=== PATIENT | female | born 1960 | race Caucasian/White ===

== ENCOUNTER → 2016-12-12 | Outpatient (CLI) | payer OTHER ==
[~2016-12-12] VITALS: Ht 162.6 cm; Wt 87.5 kg
[~2016-12-12] MED LIST: ANTIVERT25 MG PO; CLONAZEPAM1 MG PO; COMPAZINE10 MG PO; FIORICET 50-301 EACH PO; GUMMI BEAR MUL1 EACH PO; OXAYDO5 MG PO; PROTONIX40 MG PO; PROZAC40 MG PO; SOTALOL80 MG PO; SYNTHROID25 MCG PO; TIROSINT50 MCG PO; TIROSINT88 MCG PO; TOPAMAX50 MG PO; VITAMIN B125000 MCG PO; VITAMIN D32000 UNI1 PO
[2016-12-12 09:45] VITALS: BP 134/62
== END | disposition home or self-care (01) ==
LOC: IVINF 09:30
PROVIDERS: Internal Medicine Endocrinology, Diabetes & Metabolism
DX: R53.83 Other fatigue (principal); R53.81 Other malaise
CPT/HCPCS: 80400; 82024 90; 82533 91; 96374; J0834

== ENCOUNTER → 2016-12-13 | Outpatient (CLI) | payer OTHER | END | disposition home or self-care (01) | LOC: NUC 08:43 | DX: R68.81 Early satiety (principal) | CPT/HCPCS: 78264; A9541 ==

== ENCOUNTER → 2017-07-31 | Outpatient (CLI) | payer OTHER | END | disposition home or self-care (01) | LOC: NUC 08:25 | DX: R11.14 Bilious vomiting (principal); R14.0 Abdominal distension (gaseous) | CPT/HCPCS: 78804; 78999; A9572 ==

== ENCOUNTER 2017-10-22 15:01 | Emergency (ER) | payer OTHER ==
[~2017-10-22] VITALS: Ht 162.6 cm; Wt 94.8 kg
[2017-10-22 16:38] LABS: HEMATOCRIT 40.2 % (36.0-46.0); MCH 25.1 PG (29.0-34.0); MCHC 30.6 G/DL (30.0-36.0); MEAN PLAT.VOLUME 9.7 uM^3 (9.5-12.4); PLATELET COUNT 492 K/uL (156-360); RBC DIS.WIDTH-CV 14.2 % (11.8-14.6); RBC DIS.WIDTH-SD 42.5 % (39-53); WHITE BLOOD COUNT 14.4 K/uL (4.1-10.2)
[2017-10-22 16:47] LABS: CHLORIDE 104 mEq/L (99-109); POTASSIUM 2.7 mEq/L (3.7-5.4); SODIUM 141 mEq/L (136-147)
[2017-10-22 16:48] LABS: GLUCOSE 85 mg/dL (70-99)
[2017-10-22 16:50] LABS: ANION GAP 13 MEQ/L (2-14)
[2017-10-22 16:52] LABS: GFR ESTIMATE (CALCULATED) > 59 mL/min/
[2017-10-22 16:53] LABS: UREA NITROGEN (BUN) 13 mg/dL (9-23)
[2017-10-22] MEDS ORDERED: PHENERGAN-CODE120 ML PO (18:56)
[2017-10-22 19:06] VITALS: BP 164/95
== END 2017-10-22 19:07 | disposition home or self-care (01) ==
LOC: EME 15:01
DX: R05 Cough (principal); E87.6 Hypokalemia; E03.9 Hypothyroidism, unspecified; Z85.3 Personal history of malignant neoplasm of breast; Z90.13 Acquired absence of bilateral breasts and nipples; Z87.19 Personal history of other diseases of the digestive system; Z88.5 Allergy status to narcotic agent; Z88.8 Allergy status to other drugs, medicaments and biological substances
CPT/HCPCS: 71020; 71250; 80048; 85027; 87070; 87205; 93005; 94640; 99281; 99285

== ENCOUNTER 2018-01-18 13:47 | Emergency (ER) | payer OTHER ==
[~2018-01-18] VITALS: Ht 160 cm; Wt 97.5 kg
[~2018-01-18 13:47] MED LIST changes: +PHENERGAN-CODE120 ML PO
[2018-01-18 15:22] LABS: BASOPHIL (%) 1.2 % (0-1); BASOPHIL COUNT 0.1 K/uL (0-0.1); EOSINOPHIL (%) 2.7 % (0-5); EOSINOPHIL COUNT 0.2 K/uL (0-0.3); HEMATOCRIT 32.4 % (36.0-46.0); IMMATURE GRANULOCYTE (%) 0.3 % (0.0-0.7); LYMPHOCYTE (%) 30.2 % (15-42); MCH 24.3 PG (29.0-34.0); MCHC 31.5 G/DL (30.0-36.0); MONOCYTE (%) 8.9 % (3-12); MONOCYTE COUNT 0.6 K/uL (0-0.8); NEUTROPHIL (%) 56.7 % (45-76); NEUTROPHIL COUNT 3.8 K/uL (1.8-6.4); PLATELET COUNT 474 K/uL (156-360); RBC DIS.WIDTH-SD 41.9 % (39-53); WHITE BLOOD COUNT 6.7 K/uL (4.1-10.2)
[2018-01-18 15:35] LABS: HEMOGLOBIN 10.2 G/DL (11.9-15.5); MCV 77.1 FL (83-99)
[2018-01-18 15:50] LABS: CHLORIDE 110 MEQ/L (99-109); POTASSIUM 4.2 MEQ/L (3.7-5.4); SODIUM 143 MEQ/L (136-147)
[2018-01-18 15:55] LABS: CREATININE 0.7 MG/DL (0.6-1.3); GFR ESTIMATE (CALCULATED) > 59 mL/min/; GLUCOSE 109 mg/dL (70-99); UREA NITROGEN (BUN) 12 mg/dL (9-23)
[2018-01-18] MEDS ORDERED: ZOFRAN ODT4 MG PO (18:36)
[2018-01-18] MEDS ORDERED: PERCOCET 5/31 TABLET PO (18:36)
[2018-01-18] MEDS ORDERED: FLEXERIL10 MG PO (18:38)
[2018-01-18 19:23] VITALS: BP 148/81
== END 2018-01-18 19:15 | disposition home or self-care (01) ==
LOC: EME 13:47
PROVIDERS: Emergency Medicine
DX: T84.84XA Pain due to internal orthopedic prosthetic devices, implants and grafts, initial encounter (principal); E03.9 Hypothyroidism, unspecified; Z96.652 Presence of left artificial knee joint; Z85.820 Personal history of malignant melanoma of skin; Z85.3 Personal history of malignant neoplasm of breast; Z87.01 Personal history of pneumonia (recurrent); Z90.13 Acquired absence of bilateral breasts and nipples; Z88.5 Allergy status to narcotic agent; Z88.8 Allergy status to other drugs, medicaments and biological substances
CPT/HCPCS: 80048; 85025; 99281; 99285; J1885; J2405; J7030